=== PATIENT | male | born 1985 | race Caucasian/White ===

== ENCOUNTER 2017-09-08 23:33 | Inpatient (IN) | payer MEDICARE ==
--- NOTE | 2017-09-08 23:54 | ED PDOC ---
Psych Transfer Clearance - Clearance Statement Clearance Statement: Reviewed vital signs, lab results and transfer papers. Patient clinically stable for psychiatric admission. pt was cleared by Dr Hamilton
[2017-09-09] MEDS ORDERED: Alum-Mag Hydrox-Simethicone Susp (30 mL) PO PRN (00:07)
[2017-09-09] MEDS ORDERED: DiphenhydrAMINE 50 mg/ml Inj IM PRN (00:07)
[2017-09-09] MEDS ORDERED: Magnesium Hydroxide Susp 30 ml UD PO PRN (00:07)
--- NOTE | 2017-09-09 00:27 | PCM.BM ---
<Kasie Lazaro - Last Filed: 09/09/17 00:25> Treatment Plan Problems - Problems identified on initial assessmt Hopelessness/Helplessness Date Initiated: 09/09/17 Time Initiated: 00:26 Assessment reference: NA Status: Active Medication Nonadherance Date Initiated: 09/09/17 Time Initiated: 00:26 Assessment reference: NA Status: Active Treatment assets and liabiliti Patient Assests: adapts well, cooperative, insightful, self-reliant, ADL independent, physically healthy, negotiates basic needs, cognitively intact Patient Liabilities: poor support system, substance abuse - Milieu Protocol Maintain good personal hygiene: daily Remind patient to perform daily oral care , every shift Encourage regular showers, every shift Assist patient to perform ADL's Conduct patient checks and document Observation sheet: Q15 minutes Maintain personal safety: every shift Educate patient to report safety concerns to staff, every shift Monitor environment for contraband/sharps Medication safety: Monitor for expected outcome, potential side effects: every shift, Assess barriers to learning: every shift, Assess readiness for medication education: every shift <Rita Hamilton - Last Filed: 09/14/17 09:21> - Diagnosis (1) Schizoaffective disorder Status: Acute Interventions: Medication management, Individual and group therapy, Psychoeducation 09/14/17 09:22 (2) Heroin abuse Status: Acute Interventions: Medication management, Individual and group therapy, Psychoeducation 09/14/17 09:22 (3) Cocaine abuse Status: Acute Interventions: Medication management, Individual and group therapy, Psychoeducation 09/14/17 09:22 <Kei Roche - Last Filed: 09/15/17 08:09> Family Contact Family involvement: Famliy/SO not involved Family contact: Patient declines to allow family contact at present Family contact name: Pt denied. - Goals for Treatment Patient goals for treatment: Pt reported he would like to be referred to residential treatment to help him obtain and maintain sobriety. Discharge/Continuing Care - Education Needs Education Needs: Patient Medication, Patient Diagnosis/Disease Process, Patient Coping Skills, Patient Placement options, Patient Community resources, Patient Aftercare Safety Plan - Discharge Discharge Criteria: Tolerates medication w/o severe side effects, Free of Suicidal thoughts, Normal sleep pattern, Reduction of target symptoms Discharge to:: Substance Abuse Rehab - Treatment Team Participation Patient/Family/SO Statement: 09/14/17 08:07 Pt presented as brighter and reported he was "better" in treatment team. Pt still appearing disheveled. Pt reported he was still having difficulty sleeping at night so his Trazodone will be raised and his Abilify will be switched to Risperdal. Pt denied SI/HI and AVT hallucinations. Discussed with Family/SO: No Was Patient/Family/SO present at Treatment Team Meeting: Yes
[2017-09-09 00:43] VITALS: O2SAT 96
--- NOTE | 2017-09-09 17:37 | PCM.PSYCH ---
Initial Psychiatric Evaluation - Initial Psychiatric Evaluation Chief Complaint (in patient's own words): came to er because i was using crack and i was afraid i was going to harm myself Patient's Reaction to Hospitalization: signed in voluntarily History of Present Illness and Precipitating Events: presented to [facility] er compaining of s/i in context of crack cocaine use. was seen in [facility] approx one month ago for same. reports 10 year plus hx of crack cocaine use. various inpt related to similar previously treated in community for bipolar disorder with tegretol and abilify. denies suicide attempts in past. not currently member of work force or having stable housing. Current Medications: Active Medications Generic Name Dose Route Start Last Admin Trade Name Freq PRN Reason Stop Dose Admin Acetaminophen 650 mg 09/09/17 00:07 Tylenol 325mg Tab PO Q4 PRN Pain, moderate (4-7) Al Hydrox/Mg Hydrox/Simethicone 30 ml 09/09/17 00:07 Maalox Plus 30 Ml PO Q4 PRN Dyspepsia Diphenhydramine HCl 50 mg 09/09/17 00:07 Benadryl IM Q6 PRN Extrapyramidal S/S Unable PO Diphenhydramine HCl 50 mg 09/09/17 00:14 Benadryl PO HS PRN Sleep Lorazepam 1 mg 09/09/17 01:00 09/09/17 16:58 Ativan PO 1 mg Q8 [place] Administration Magnesium Hydroxide 30 ml 09/09/17 00:07 Milk Of Magnesia PO HS PRN Constipation Past Psychiatric History - Past Psychiatric History Prior Professional Help: inpt er opd non follow up opd nond adherence History of ETOH/Drug Use: crack use cocaine inhalation History of Family Illness: substance use? psychiatryic illness ? Pertinent Medical Hx (Current Medical&Sleep Prob, Allergies): Allergies Allergy/AdvReac Type Severity Reaction Status Date / Time haloperidol [From Haldol] Allergy RASH Verified 09/08/17 23:39 ziprasidone [From Geodon] Allergy HEADACHE Verified 09/08/17 23:39 ARIPiprazole [Abilify] 10 mg PO HS #30 tab 08/18/17 Citalopram [celEXA] 20 mg PO DAILY #30 tab 08/18/17 carBAMazepine [Tegretol] 200 mg PO BID #60 tab 08/18/17 traZODone [Desyrel] 50 mg PO HS #30 tab 08/18/17 Review of Systems - Psychiatric Psychiatric: Abnormal Sleep Pattern, Depression, Difficulty Concentrating, Irritability, Suicidal Ideation Mental Status Examination - Personal Presentation Personal Presentation: Looks older than stated age - Affect Affect: Constricted - Motor Activity Motor Activity: Psychomotor Retardation - Reliability in Providing Information Reliability in Providing Information: Fair - Speech Speech: Organized - Mood Mood: Depressed, Anxious - Formal Thought Process Formal Thought Process: No Impairment - Obsessions/Compulsions Obsessions: No Compulsions: No - Cognitive Functions Orientation: Person, Place, Situation, Time Sensorium: Alert Attention/Concentration: Attentive Judgement: Imparied, as evidence by: Other - Risk Risk: Suicidal, Diminished functioning - Strength & Assets Inventory Strength & Assets Inventory: Cooperative (non domicile non member of work force) DSM 5 DX - DSM 5 DSM 5 Diagnosis: bipolar disorder substance use cocaine inhalation - Recommended/Plan of Treatment Treatment Recommendations and Plan of Treatment: inpt adm per attending vital signs and clinical observation per protocol and per clinical status prns per unit protocol hospitalist consult discharge planning in progress
--- NOTE | 2017-09-09 17:37 | CP.PCM.CON ---
History of Present Illness - History of Present Illness History of Present Illness: 32 yo male with no significant PMH admitted to psyche unit because of depression. Review of Systems - Review of Systems All systems: reviewed and no additional remarkable complaints except (aside from those mentioned above, 12 point system review were negative by me) Past Patient History - Tetanus Immunizations Tetanus Immunization: Unknown - Past Social History Smoking Status: Heavy Smoker > 10 Cigarettes Daily Chewing Tobacco Use: No Cigar Use: No Alcohol: > 2 Drinks/Day Drugs: Denies - CARDIAC Hx Cardiac Disorders: No - PULMONARY Hx Respiratory Disorders: Yes Hx Asthma: Yes - NEUROLOGICAL Hx Neurological Disorder: No - HEENT Hx HEENT Problems: No - RENAL Hx Chronic Kidney Disease: No - ENDOCRINE/METABOLIC Hx Endocrine Disorders: No - HEMATOLOGICAL/ONCOLOGICAL Hx Blood Disorders: No - INTEGUMENTARY Hx Dermatological Problems: No - MUSCULOSKELETAL/RHEUMATOLOGICAL Hx Musculoskeletal Disorders: No - GASTROINTESTINAL Hx Gastrointestinal Disorders: No - GENITOURINARY/GYNECOLOGICAL Hx Genitourinary Disorders: No - PSYCHIATRIC Hx Substance Use: Yes - SURGICAL HISTORY Hx Surgeries: Yes Hx Tonsillectomy: Yes - ANESTHESIA Hx Anesthesia: Yes Hx Anesthesia Reactions: No Meds Allergies/Adverse Reactions: Allergies Allergy/AdvReac Type Severity Reaction Status Date / Time haloperidol [From Haldol] Allergy RASH Verified 09/08/17 23:39 ziprasidone [From Geodon] Allergy HEADACHE Verified 09/08/17 23:39 - Medications Medications: Current Medications Acetaminophen (Tylenol 325mg Tab) 650 mg PO Q4 PRN PRN Reason: Pain, moderate (4-7) Al Hydrox/Mg Hydrox/Simethicone (Maalox Plus 30 Ml) 30 ml PO Q4 PRN PRN Reason: Dyspepsia Diphenhydramine HCl (Benadryl) 50 mg IM Q6 PRN PRN Reason: Extrapyramidal S/S Unable PO Diphenhydramine HCl (Benadryl) 50 mg PO HS PRN PRN Reason: Sleep Lorazepam (Ativan) 1 mg PO Q8 [place] Last Admin: 09/09/17 16:58 Dose: 1 mg Magnesium Hydroxide (Milk Of Magnesia) 30 ml PO HS PRN PRN Reason: Constipation Physical Exam - Constitutional Appears: No Acute Distress - Head Exam Head Exam: ATRAUMATIC - Eye Exam Eye Exam: absent: Scleral icterus - ENT Exam ENT Exam: Mucous Membranes Moist - Neck Exam Neck exam: Negative for: Meningismus - Respiratory Exam Respiratory Exam: absent: Rales, Rhonchi, Wheezes, Respiratory Distress - Cardiovascular Exam Cardiovascular Exam: REGULAR RHYTHM, +S1, +S2 - GI/Abdominal Exam GI & Abdominal Exam: Soft. absent: Tenderness - Rectal Exam Rectal Exam: Deferred - Extremities Exam Extremities exam: Negative for: calf tenderness, pedal edema - Back Exam Back exam: NORMAL INSPECTION - Neurological Exam Neurological exam: Alert, Oriented x3 - Psychiatric Exam Psychiatric exam: Normal Affect - Skin Skin Exam: Dry, Intact Results - Vital Signs Recent Vital Signs: Last Vital Signs Temp 97.2 F L 09/09/17 17:00 Pulse 70 09/09/17 17:00 Resp 18 09/09/17 17:00 BP 140/74 09/09/17 17:00 Pulse Ox 96 09/09/17 00:15 Assessment & Plan (1) Depression Status: Acute Comment: psyche is managing
[2017-09-10 07:17] LABS: BASO # 0.1 K/uL (0.0-0.2); BASO % 0.6 % (0.0-2.0); EOS # 0.2 K/uL (0.0-0.7); EOS % 1.9 % (0.0-4.0); HEMOGLOBIN 15.8 g/dL (12.0-18.0); LYMPH % 46.7 % (20.0-40.0); MEAN CELL VOLUME 87.5 fl (80.0-94.0); MEAN CORPUSCULAR HEMOGLOBIN 29.9 pg (27.0-31.0); MEAN CORPUSCULAR HGB CONC 34.2 g/dL (33.0-37.0); MEAN PLATELET VOLUME 7.5 fl (7.2-11.7); MONO # 0.5 K/uL (0.0-0.8); MONO % 5.9 % (0.0-10.0); NEUT # 3.8 K/uL (1.8-7.0); NEUT % 44.9 % (50.0-75.0); NRBC % 0.1 % (0.0-0.0); RBC 5.29 Mil/uL (4.40-5.90); RED CELL DISTRIBUTION WIDTH 14.2 % (11.5-14.5); WHITE BLOOD COUNT 8.5 K/uL (4.8-10.8)
[2017-09-10 07:23] LABS: ALB/GLOB RATIO 1.5 (1.0-2.1); ALBUMIN 4.3 g/dL (3.5-5.0); ALT/SGPT 47 U/L (21-72); AST/SGOT 33 U/L (17-59); BLOOD UREA NITROGEN 11 mg/dl (9-20); CALCIUM 9.5 mg/dL (8.4-10.2); GFR AFRICAN-AMERICAN > 60; GFR NON-AFRICAN AMERICAN > 60
[2017-09-10 08:04] LABS: BARBITURATES, UR NEGATIVE (NEGATIVE); BENZODIAZEPINES, UR NEGATIVE (NEGATIVE); OPIATES, UR NEGATIVE (NEGATIVE); PHENCYCLIDINE, UR NEGATIVE (NEGATIVE)
--- NOTE | 2017-09-10 13:56 | PCM.PYCHPN ---
Psychiatric Progress Note - Psychiatric Progress Note Patient seen today, length of contact: Patient evaluated, case discussed with team, chart reviewed Patient Chief Complaint: "I'm depressed." Problems Identified/Issues Discussed: Patient continues to report feeling depressed w/ passive SI w/o active suicidal ideation/plan/intent. He feels hopeless and distressed about his difficulties w / substance abuse. He denies current AH/VH/paranoia/delusions. He denies adverse effects to medications. Medication Change: No Medical Record Reviewed: Yes Consults ordered or reviewed: Medicine consult Mental Status Examination - Cognitive Function Orientation: Person, Place, Situation, Time Memory: Intact Attention: WNL Concentration: WNL Association: WNL Fund of Knowledge: [facility] Decription of patient's judgement and insights: Poor I/J re: substance abuse - Mood Mood: Depressed, Anxious - Affect Affect: Constricted, Depressed - Speech Speech: Appropriate - Formal Thought Process Formal Thought Process: No Impairment Psychotic Thoughts and Behaviors: Denies AH/VH/paranoia/delusions - Suicidal Ideation Suicidal Ideation: Yes Plan: Passive SI w/o active plan or intent - Homicidal Ideation Homicidal Ideation: No Goal/Treatment Plan - Goal/Treatment Plan Need for Continued Stay: Remain at risks for inpatient hospitalization, Severe depression anxiety, Discharge may exacerbated symptoms Progress Toward Problem(s) and Goals/Treatment Plan: Schizoaffective disorder vs substance induced mood/psychotic disorder; cocaine use disorder; heroin use disorder -Continue Abilify 10 mg PO Daily and Tegretol 200 mg PO BID -Individual and group therapy -Psychoeducation -Medicine consult -Disposition planning Estimated Date of D/C: 09/15/17
--- NOTE | 2017-09-11 08:49 | PCM.PYCHPN ---
Psychiatric Progress Note - Psychiatric Progress Note Patient seen today, length of contact: Patient evaluated, case discussed with team, chart reviewed Patient Chief Complaint: "I'm depressed." Problems Identified/Issues Discussed: Patient continues to report feeling depressed, but denies active suicidal ideation/plan/intent. He is more goal oriented and is interested in substance abuse treatment. He denies current AH/VH/paranoia/delusions. He denies adverse effects to medications. Medication Change: No Medical Record Reviewed: Yes Consults ordered or reviewed: Medicine consult Mental Status Examination - Cognitive Function Orientation: Person, Place, Situation, Time Memory: Intact Attention: WNL Concentration: WNL Association: WN Fund of Knowledge: [facility] Decription of patient's judgement and insights: Poor I/J re: substance abuse - Mood Mood: Depressed - Affect Affect: Constricted, Depressed - Speech Speech: Appropriate - Formal Thought Process Formal Thought Process: No Impairment Psychotic Thoughts and Behaviors: Denies AH/VH/paranoia/delusions - Suicidal Ideation Suicidal Ideation: No - Homicidal Ideation Homicidal Ideation: No Goal/Treatment Plan - Goal/Treatment Plan Need for Continued Stay: Remain at risks for inpatient hospitalization, Severe depression anxiety, Discharge may exacerbated symptoms Progress Toward Problem(s) and Goals/Treatment Plan: Schizoaffective disorder vs substance induced mood/psychotic disorder; cocaine use disorder; heroin use disorder -Continue Abilify 10 mg PO Daily and Tegretol 200 mg PO BID -Individual and group therapy -Psychoeducation -Medicine consult -Disposition planning Estimated Date of D/C: 09/15/17
--- NOTE | 2017-09-12 08:06 | PCM.PYCHPN ---
Psychiatric Progress Note - Psychiatric Progress Note Patient seen today, length of contact: Patient evaluated, case discussed with team, chart reviewed Patient Chief Complaint: "I'm depressed." Problems Identified/Issues Discussed: Patient continues to report feeling depressed w/ poor sleep, but denies active suicidal ideation/plan/intent. He is concerned about relapsing on drugs. He denies current AH/VH/paranoia/delusions. He denies adverse effects to medications. Medication Change: No Medical Record Reviewed: Yes Consults ordered or reviewed: Medicine consult Mental Status Examination - Cognitive Function Orientation: Person, Place, Situation, Time Memory: Intact Attention: WNL Concentration: WNL Association: [facility] Fund of Knowledge: [facility] Decription of patient's judgement and insights: Poor I/J re: substance abuse - Mood Mood: Depressed - Affect Affect: Constricted, Depressed - Speech Speech: Appropriate - Formal Thought Process Formal Thought Process: No Impairment Psychotic Thoughts and Behaviors: Denies AH/VH/paranoia/delusions - Suicidal Ideation Suicidal Ideation: No - Homicidal Ideation Homicidal Ideation: No Goal/Treatment Plan - Goal/Treatment Plan Need for Continued Stay: Remain at risks for inpatient hospitalization, Severe depression anxiety, Discharge may exacerbated symptoms Progress Toward Problem(s) and Goals/Treatment Plan: Schizoaffective disorder vs substance induced mood/psychotic disorder; cocaine use disorder; heroin use disorder -Continue Abilify 10 mg PO Daily and Tegretol 200 mg PO BID -Individual and group therapy -Psychoeducation -Medicine consult -Disposition planning Estimated Date of D/C: 09/15/17
--- NOTE | 2017-09-13 18:49 | PCM.PYCHPN ---
Psychiatric Progress Note - Psychiatric Progress Note Patient seen today, length of contact: Patient evaluated, case discussed with team, chart reviewed Patient Chief Complaint: reports feeling calmer, less anxious denies desire to harmself Problems Identified/Issues Discussed: alteration in mood alteration in self care Medical Problems: per chart Diagnostic Results: per psychiatry per medicine per nursing per social work manager per recreational therapy DSM 5 Symptoms Update: alteration in mood Medication Change: No Medical Record Reviewed: Yes Consults ordered or reviewed: pt being followed by hospitalist Mental Status Examination - Cognitive Function Orientation: Person, Place, Situation, Time Memory: Intact Attention: WNL Concentration: WNL Association: [facility] Fund of Knowledge: [facility] Decription of patient's judgement and insights: impaired - Mood Mood: Depressed - Affect Affect: Constricted, Depressed - Speech Speech: Appropriate - Formal Thought Process Formal Thought Process: No Impairment - Suicidal Ideation Suicidal Ideation: No - Homicidal Ideation Homicidal Ideation: No Goal/Treatment Plan - Goal/Treatment Plan Need for Continued Stay: Remain at risks for inpatient hospitalization, Severe depression anxiety, Discharge may exacerbated symptoms Progress Toward Problem(s) and Goals/Treatment Plan: inpt milieu vital signs and clinical observation per protocol and per clinical status prns per unit protocol adjust meds per status cbc/diff am pt receiving tegretol discharge planning in progress Estimated Date of D/C: 09/15/17 - Smoking Cessation Smoking Cessation Initiated: No Reason for not providing: defers
--- NOTE | 2017-09-14 10:43 | PCM.PYCHPN ---
Psychiatric Progress Note - Psychiatric Progress Note Patient seen today, length of contact: Patient evaluated, case discussed with team, chart reviewed Patient Chief Complaint: "I'm depressed." Problems Identified/Issues Discussed: Patient reports that his mood is improving, but he continues to have difficulty sleeping and believes that Abilify is causing him to feel activated. He requested to stop Abilify and start Risperdal, which he states was helpful in the past. He denies current AH/VH/paranoia/delusions. He denies adverse effects to medications. Medication Change: Yes (Stop Abilify; start Risperdal 1 mg PO HS) Medical Record Reviewed: Yes Consults ordered or reviewed: Medicine consult Mental Status Examination - Cognitive Function Orientation: Person, Place, Situation, Time Memory: Intact Attention: WNL Concentration: WNL Association: WNL Fund of Knowledge: WN Decription of patient's judgement and insights: Improving I/J - Mood Mood: Depressed - Affect Affect: Constricted - Speech Speech: Appropriate - Formal Thought Process Formal Thought Process: No Impairment Psychotic Thoughts and Behaviors: No AH/VH/paranoia/delusions - Suicidal Ideation Suicidal Ideation: No - Homicidal Ideation Homicidal Ideation: No Goal/Treatment Plan - Goal/Treatment Plan Need for Continued Stay: Severe depression anxiety, Discharge may exacerbated symptoms Progress Toward Problem(s) and Goals/Treatment Plan: Schizoaffective disorder vs substance induced mood/psychotic disorder; cocaine use disorder; heroin use disorder -Continue Tegretol 200 mg PO BID -Stop Abilify, Start Risperdal 1 mg PO HS -Individual and group therapy -Psychoeducation -Medicine consult -Disposition planning Estimated Date of D/C: 09/17/17
[2017-09-14 19:44] LABS: BASO # 0.1 K/uL (0.0-0.2); EOS # 0.1 K/uL (0.0-0.7); EOS % 1.6 % (0.0-4.0); LYMPH # 2.6 K/uL (1.0-4.3); LYMPH % 44.9 % (20.0-40.0); MEAN CELL VOLUME 87.4 fl (80.0-94.0); MEAN CORPUSCULAR HEMOGLOBIN 30.2 pg (27.0-31.0); MEAN CORPUSCULAR HGB CONC 34.5 g/dL (33.0-37.0); MEAN PLATELET VOLUME 7.2 fl (7.2-11.7); MONO # 0.4 K/uL (0.0-0.8); MONO % 6.5 % (0.0-10.0); NEUT # 2.7 K/uL (1.8-7.0); NRBC % 0.1 % (0.0-0.0); RBC 5.32 Mil/uL (4.40-5.90); RED CELL DISTRIBUTION WIDTH 14.2 % (11.5-14.5); WHITE BLOOD COUNT 5.8 K/uL (4.8-10.8)
--- NOTE | 2017-09-15 07:57 | PCM.PYCHPN ---
Psychiatric Progress Note - Psychiatric Progress Note Patient seen today, length of contact: Patient evaluated, case discussed with team, chart reviewed Patient Chief Complaint: "I'm getting better." Problems Identified/Issues Discussed: Patient reports that his mood is improving. He is goal oriented towards the future. He denies current AH/VH/paranoia/delusions/SI/HI. He denies adverse effects to medications. Psychoeducation provided on the dangers of substance abuse. Medication Change: No Medical Record Reviewed: Yes Consults ordered or reviewed: Medicine consult Mental Status Examination - Cognitive Function Orientation: Person, Place, Situation, Time Memory: Intact Attention: WNL Concentration: WNL Association: WNL Fund of Knowledge: [facility] Decription of patient's judgement and insights: Improving I/J - Mood Mood: Depressed - Affect Affect: Broad - Speech Speech: Appropriate - Formal Thought Process Formal Thought Process: No Impairment Psychotic Thoughts and Behaviors: No AH/VH/paranoia/delusions - Suicidal Ideation Suicidal Ideation: No - Homicidal Ideation Homicidal Ideation: No Goal/Treatment Plan - Goal/Treatment Plan Progress Toward Problem(s) and Goals/Treatment Plan: Schizoaffective disorder vs substance induced mood/psychotic disorder; cocaine use disorder; heroin use disorder; patient has improved clinically and is psychiatrically stable for referral to [facility]. -Continue Tegretol 200 mg PO BID -Continue Risperdal 1 mg PO HS -Individual and group therapy -Psychoeducation -Medicine consult -Disposition planning Estimated Date of D/C: 09/17/17
[2017-09-15 09:16] VITALS: RESP 18
--- NOTE | 2017-09-16 09:24 | PCM.PYCHPN ---
Psychiatric Progress Note - Psychiatric Progress Note Patient seen today, length of contact: Patient evaluated, case discussed with team, chart reviewed Patient Chief Complaint: "I'm getting better." Problems Identified/Issues Discussed: Patient reports that his mood continues to improve. He is goal oriented towards the future. He denies current AH/VH/paranoia/delusions/SI/HI. He denies adverse effects to medications. Psychoeducation provided on the dangers of substance abuse. Medication Change: No Medical Record Reviewed: Yes Consults ordered or reviewed: Medicine consult Mental Status Examination - Cognitive Function Orientation: Person, Place, Situation, Time Memory: Intact Attention: WNL Concentration: WNL Association: WNL Fund of Knowledge: [facility] Decription of patient's judgement and insights: Improving I/J - Mood Mood: Depressed - Affect Affect: Broad - Speech Speech: Appropriate - Formal Thought Process Formal Thought Process: No Impairment Psychotic Thoughts and Behaviors: No AH/VH/paranoia/delusions - Suicidal Ideation Suicidal Ideation: No - Homicidal Ideation Homicidal Ideation: No Goal/Treatment Plan - Goal/Treatment Plan Need for Continued Stay: Discharge may exacerbated symptoms Progress Toward Problem(s) and Goals/Treatment Plan: Schizoaffective disorder vs substance induced mood/psychotic disorder; cocaine use disorder; heroin use disorder; patient has improved clinically and is psychiatrically stable for referral to [facility]. -Continue Tegretol 200 mg PO BID -Continue Risperdal 1 mg PO HS -Individual and group therapy -Psychoeducation -Medicine consult -Disposition planning Estimated Date of D/C: 09/17/17
--- NOTE | 2017-09-16 14:16 | PCM.BM ---
Treatment Plan Problems - Problems identified on initial assessmt Hopelessness/Helplessness Date Initiated: 09/09/17 Time Initiated: 00:26 Assessment reference: NA Status: Active Medication Nonadherance Date Initiated: 09/09/17 Time Initiated: 00:26 Assessment reference: NA Status: Active Denial Date Initiated: 09/16/17 Time Initiated: 14:16 Assessment reference: NA Status: Active Treatment assets and liabiliti Patient Assests: adapts well, cooperative, insightful, self-reliant, ADL independent, physically healthy, negotiates basic needs, cognitively intact Patient Liabilities: poor support system, substance abuse - Milieu Protocol Maintain good personal hygiene: daily Remind patient to perform daily oral care , every shift Encourage regular showers, every shift Assist patient to perform ADL's Conduct patient checks and document Observation sheet: Q15 minutes Maintain personal safety: every shift Educate patient to report safety concerns to staff, every shift Monitor environment for contraband/sharps Medication safety: Monitor for expected outcome, potential side effects: every shift, Assess barriers to learning: every shift, Assess readiness for medication education: every shift Milieu Narrative: Schizoaffective disorder vs substance induced mood/psychotic disorder; cocaine use disorder; heroin use disorder; patient has improved clinically and is psychiatrically stable for referral to [facility]. -Continue Tegretol 200 mg PO BID -Continue Risperdal 1 mg PO HS -Individual and group therapy -Psychoeducation -Medicine consult -Disposition planning Family Contact Family involvement: Famliy/SO not involved Family contact: Patient declines to allow family contact at present Family contact name: Pt denied. - Goals for Treatment Patient goals for treatment: Pt reported he would like to be referred to residential treatment to help him obtain and maintain sobriety. Discharge/Continuing Care - Education Needs Education Needs: Patient Medication, Patient Diagnosis/Disease Process, Patient Coping Skills, Patient Placement options, Patient Community resources, Patient Aftercare Safety Plan - Discharge Discharge Criteria: Tolerates medication w/o severe side effects, Free of Suicidal thoughts, Normal sleep pattern, Reduction of target symptoms Discharge to:: Substance Abuse Rehab - Treatment Team Participation Patient/Family/SO Statement: Schizoaffective disorder vs substance induced mood/psychotic disorder; cocaine use disorder; heroin use disorder; patient has improved clinically and is psychiatrically stable for referral to [facility]. -Continue Tegretol 200 mg PO BID -Continue Risperdal 1 mg PO HS -Individual and group therapy -Psychoeducation -Medicine consult -Disposition planning Discussed with Family/SO: No Was Patient/Family/SO present at Treatment Team Meeting: Yes
--- NOTE | 2017-09-17 08:45 | PCM.PYCHDC ---
Mental Status Examination - Mental Status Examination Orientation: Person, Place, Situation, Time Memory: Intact Mood: Neutral Affect: Broad Speech: Appropriate Attention: WNL Concentration: WNL Association: WNL Fund of Knowledge: WNL Formal Thought Process: No Impairment Description of patient's judgement and insight: Improved I/J Psychotic Thoughts and Behaviors: No AH/VH/paranoia/delusions Suicidal Ideation: No Current Homicidal Ideation?: No Discharge Summary - Discharge Note Reason for Hospitalization: Patient admitted w/ worsening depression/anxiety and suicidal ideation in the context of substance abuse. Consultations:: List each consultation separately and include: 1. Reason for request. 2. Findings. 3. Follow-up Consultations: Medicine consult Summary of Hospital Course include:: 1. Description of specific treatment plan utilized for patients during their course of treatmen. 2. Summarize the time- course for resolution of acute symptoms and/or regressed behaviors. 3. Describe issues identified and worked on during hospitalization. 4. Describe medication utilized. 5. Describe medical problems identified and treated. 6. Reassessment of suicide risk Summary of Hospital Course: Patient was admitted to the psychiatry unit. Individual and group therapy were provided. Patient was stabilized on Tegretol, Risperdal and Trazodone. He denies acute depression/anxiety/AH/VH/paranoia/delusions. Psychoeducation provided on the dangers of substance abuse. He is not an acute danger to self or others and is psychiatrically stable for discharge at this time. - Diagnosis (1) Substance induced mood disorder Current Visit: Yes Status: Chronic (2) Heroin abuse Current Visit: Yes Status: Chronic (3) Cocaine abuse Current Visit: Yes Status: Chronic - Final Diagnosis (DSM 5) Condition upon Discharge: STABLE DSM 5: Substance Induced Mood Disorder; Opioid and Cocaine Use Disorders Disposition: HOME/ ROUTINE Follow-up Treatment Plan: Substance induced mood/psychotic disorder; cocaine use disorder; heroin use disorder; patient has improved clinically and is psychiatrically stable for discharge. -Continue Tegretol 200 mg PO BID -Continue Risperdal 1 mg PO HS -Continue Trazodone 50 mg PO HS -Individual and group therapy -Psychoeducation -Medicine consult -Discharge Prescriptions/Medication Reconciliation: carBAMazepine [Tegretol] 200 mg PO BID #180 tab risperiDONE [RisperDAL Tab] 1 mg PO HS #90 tab traZODone [Desyrel] 50 mg PO HS #90 tab - Smoking Cessation Smoking Cessation Medication prescribed: No Reason for not providing: Not indicated - Antipsychotic Medications Pt discharged on 2 or more routine antipsychotic medications: No
[2017-09-17 09:06] VITALS: BP 132/81; PULSE 71; TEMP 96.3
== END 2017-09-17 12:56 | disposition home or self-care (01) | DRG 895 ==
LOC: H.ER 23:33 → H.ERHOLD 23:53 → H.PSYCH 09-09 00:05
PROVIDERS: ADMIT Psychiatry & Neurology Psychiatry; ATTEND Psychiatry & Neurology Psychiatry
PROC: HZ52ZZZ Individual Psychotherapy for Substance Abuse Treatment, Cognitive-Behavioral (ICD-10-PCS; principal; 2017-09-08)
PROC: GZHZZZZ Group Psychotherapy (ICD-10-PCS; 2017-09-08)
PROC: GZ58ZZZ Individual Psychotherapy, Cognitive-Behavioral (ICD-10-PCS; 2017-09-08)
DX: F19.94 Other psychoactive substance use, unspecified with psychoactive substance-induced mood disorder (principal); F14.129 Cocaine abuse with intoxication, unspecified; R45.851 Suicidal ideations; F11.10 Opioid abuse, uncomplicated; F25.9 Schizoaffective disorder, unspecified; F41.9 Anxiety disorder, unspecified; J45.909 Unspecified asthma, uncomplicated; F17.210 Nicotine dependence, cigarettes, uncomplicated; Z79.899 Other long term (current) drug therapy

== ENCOUNTER 2017-09-20 15:53 | Emergency (ER) | payer MEDICARE ==
[2017-09-20 16:14] VITALS: RESP 18; O2SAT 100
[2017-09-20] MEDS ORDERED: Sodium Chloride 0.9% 1,000 ML IV STA (18:55)
[2017-09-20 19:54] LABS: BASO # 0.1 K/uL (0.0-0.2); BASO % 1.1 % (0.0-2.0); EOS # 0.1 K/uL (0.0-0.7); EOS % 1.7 % (0.0-4.0); HEMOGLOBIN 14.7 g/dL (12.0-18.0); LYMPH # 3.3 K/uL (1.0-4.3); LYMPH % 39.4 % (20.0-40.0); MEAN CELL VOLUME 87.6 fl (80.0-94.0); MEAN CORPUSCULAR HEMOGLOBIN 30.3 pg (27.0-31.0); MEAN CORPUSCULAR HGB CONC 34.6 g/dL (33.0-37.0); MEAN PLATELET VOLUME 7.3 fl (7.2-11.7); MONO # 0.7 K/uL (0.0-0.8); MONO % 7.8 % (0.0-10.0); NEUT # 4.2 K/uL (1.8-7.0); NRBC % 0.1 % (0.0-0.0); RBC 4.84 Mil/uL (4.40-5.90); RED CELL DISTRIBUTION WIDTH 14.5 % (11.5-14.5); WHITE BLOOD COUNT 8.5 K/uL (4.8-10.8)
[2017-09-20] MEDS ORDERED: Iohexol 240 (50 ml) PO STA (20:02)
--- NOTE | 2017-09-20 20:07 | ED PDOC ---
HPI: Abdomen Time Seen by Provider: 09/20/17 18:03 Chief Complaint (Nursing): Abdominal Pain Chief Complaint (Provider): Hernia - Pain worse today History Per: Patient History/Exam Limitations: no limitations Current Symptoms Are (Timing): Still Present Additional Complaint(s): 32 yo male with history of umbilical hernia presents with worsening pain for a few hours. PT states it was acutely worse when he bent over to lift something. Pt states it was not heavy. Pt states he has not had pain from the hernia in the past. No fever/chills. Normal BM. Past Medical History Reviewed: Historical Data, Nursing Documentation, Vital Signs Vital Signs: Last Vital Signs Temp 98.1 F 09/20/17 16:13 Pulse 91 H 09/20/17 16:13 Resp 18 09/20/17 16:13 BP 119/66 09/20/17 16:13 Pulse Ox 100 09/20/17 16:13 - Medical History PMH: Anxiety, Asthma, Bipolar Disorder, Depression, HTN Denies: Chronic Kidney Disease - Surgical History Surgical History: Tonsillectomy - Family History Family History: States: Unknown Family Hx - Living Arrangements Living Arrangements: With Family - Social History Current smoker - smoking cessation education provided: No - Immunization History Hx Tetanus Toxoid Vaccination: No Hx Influenza Vaccination: No - Home Medications Home Medications: Ambulatory Orders Medication Instructions Recorded carBAMazepine [Tegretol] 200 mg PO BID #180 tab 09/16/17 risperiDONE [RisperDAL Tab] 1 mg PO HS #90 tab 09/16/17 traZODone [Desyrel] 50 mg PO HS #90 tab 09/16/17 - Allergies Allergies/Adverse Reactions: Allergies Allergy/AdvReac Type Severity Reaction Status Date / Time haloperidol [From Haldol] Allergy RASH Verified 09/20/17 16:13 ziprasidone [From Geodon] Allergy HEADACHE Verified 09/20/17 16:13 Review of Systems ROS Statement: Except As Marked, All Systems Reviewed And Found Negative Constitutional: Negative for: Fever, Chills Gastrointestinal: Positive for: Other Physical Exam - Reviewed Nursing Documentation Reviewed: Yes Vital Signs Reviewed: Yes - Physical Exam Appears: Positive for: Well, Non-toxic, No Acute Distress Head Exam: Positive for: ATRAUMATIC, NORMAL INSPECTION, NORMOCEPHALIC Skin: Positive for: Normal Color, Warm, DRY Eye Exam: Positive for: Normal appearance ENT: Positive for: Normal ENT Inspection Neck: Positive for: Normal, Painless ROM Cardiovascular/Chest: Positive for: Regular Rate, Rhythm Respiratory: Positive for: Normal Breath Sounds. Negative for: Accessory Muscle Use, Respiratory Distress Gastrointestinal/Abdominal: Positive for: Normal Exam, Soft, Tenderness, Hernia (Plapable, unable to reduce ) Back: Positive for: Normal Inspection Extremity: Positive for: Normal ROM Neurologic/Psych: Positive for: Alert, Oriented - ECG O2 Sat by Pulse Oximetry: 100 Medical Decision Making Medical Decision Making: Endorsed to [facility]OR[facility] Adrian pending CT. Disposition - Clinical Impression Clinical Impression: Umbilical hernia - Patient ED Disposition Is Patient to be Admitted: Transfer of Care - Disposition Disposition: Transfer of Care Disposition Time: 20:08 Condition: STABLE Instructions: Abdominal Hernia (DC)
[2017-09-20 20:08] LABS: PROTHROMBIN TIME 10.1 Seconds (9.8-13.1)
[2017-09-20 20:09] LABS: INR 0.9 (0.9-1.2); PARTIAL THROMBOPLASTIN TIME 29.4 Seconds (25.6-37.1)
[2017-09-20 20:19] LABS: ALB/GLOB RATIO 1.4 (1.0-2.1); ALBUMIN 4.2 g/dL (3.5-5.0); ALT/SGPT 92 U/L (21-72); AST/SGOT 65 U/L (17-59); BLOOD UREA NITROGEN 19 mg/dl (9-20); CALCIUM 9.4 mg/dL (8.4-10.2); GFR AFRICAN-AMERICAN > 60; GFR NON-AFRICAN AMERICAN > 60
[2017-09-20] MEDS ORDERED: Iohexol 240 (50 ml) ONE (20:33)
[2017-09-20] MEDS ORDERED: Iohexol 300 50 ML ONE (22:24)
--- NOTE | 2017-09-21 | ED PDOC ---
- Laboratory Results Result Diagrams: 09/20/17 19:41 09/20/17 19:41 - ECG O2 Sat by Pulse Oximetry: 100 - Progress ED Course And Treament: Case endorsed to telegraphic typewriter mechanic from [facility] pending CT EXAM: CT Abdomen and Pelvis With Intravenous Contrast CLINICAL HISTORY: 32 years old, male; Signs and symptoms; Other: Hernia TECHNIQUE: Axial computed tomography images of the abdomen and pelvis with intravenous contrast. All CT scans at this facility use at least one of these dose optimization techniques: automated exposure control; mA and/or kV adjustment per patient size (includes targeted exams where dose is matched to clinical indication); or iterative reconstruction. CONTRAST: 95 mL of omni-300 administered intravenously. COMPARISON: No relevant prior studies available. FINDINGS: Lung bases: There is minimal bibasilar atelectasis. ABDOMEN: Liver: Possible fatty infiltration. Mild hepatomegaly. Gallbladder and bile ducts: The gallbladder is normal. No calcified stones. No ductal dilation. Pancreas: The pancreas is normal. Spleen: Unremarkable. Adrenals: The adrenal glands are normal. Kidneys and ureters: The kidneys are normal. Stomach and bowel: Unremarkable. No obstruction. PELVIS: Appendix: A normal appendix is identified. Bladder: The bladder is normal. Reproductive: Unremarkable as visualized. ABDOMEN and PELVIS: Intraperitoneal space: Unremarkable. No free air. No significant fluid collection. Bones/joints: No acute fracture. No dislocation. Soft tissues: There is a fat-containing umbilical hernia. There is minimal increased attenuation of the fat within the hernia. Vasculature: Unremarkable. No abdominal aortic aneurysm. Lymph nodes: Unremarkable. No enlarged lymph nodes. IMPRESSION: There is a fat-containing umbilical hernia. There is minimal increased attenuation of the fat within the hernia. Consider the possibility of early incarceration. Additional findings as described above. Ice applied to hernia; attempted to reduce hernia. On re-eval, patient denies pain to site. Size of hernia appears improved Patient educated on findings, advised follow up surgery Rx ibuprofen given Return precautions given Disposition - Clinical Impression Clinical Impression: Umbilical hernia - POA Present On Arrival: None - Disposition Referrals: Nawaf Brewer MD [Staff Provider] - [facility] [Outside] Disposition: Routine/Home Disposition Time: 00:46 Condition: STABLE Prescriptions: Ibuprofen [Motrin Tab] 1 tab PO Q6 PRN #20 tab PRN Reason: Pain, Moderate (4-7) Instructions: Umbilical Hernia, Adult
[2017-09-21 01:23] VITALS: BP 127/70; PULSE 86; TEMP 98.6
--- NOTE | 2017-09-21 07:50 | CT ---
Date of service: 09/20/2017 PROCEDURE: CT Abdomen and Pelvis with contrast HISTORY: hernia COMPARISON: None. TECHNIQUE: Contrast dose: 95 cc Omnipaque 300. Radiation dose: Total exam DLP = 606.75 mGy-cm. This CT exam was performed using one or more of the following dose reduction techniques: Automated exposure control, adjustment of the mA and/or kV according to patient size, and/or use of iterative reconstruction technique. FINDINGS: LOWER THORAX: Unremarkable. LIVER: Unremarkable. No gross lesion or ductal dilatation. GALLBLADDER AND BILE DUCTS: Unremarkable. PANCREAS: Unremarkable. No gross lesion or ductal dilatation. SPLEEN: Unremarkable. ADRENALS: Unremarkable. No mass. KIDNEYS AND URETERS: Unremarkable. No hydronephrosis. No solid mass. VASCULATURE: Unremarkable. No aortic aneurysm. BOWEL: Constipation without fecal impaction or obstruction. APPENDIX: Normal appendix. PERITONEUM: Unremarkable. No free fluid. No free air. LYMPH NODES: Unremarkable. No enlarged lymph nodes. BLADDER: Unremarkable. REPRODUCTIVE: Unremarkable. BONES: No acute fracture. OTHER FINDINGS: Fat containing periumbilical hernia. The opening in the anterior abdominal wall/ rectus musculature 2.5 cm. IMPRESSION: Fat containing anterior abdominal wall hernia. No evidence of associated small-bowel obstruction or other pathologic process. Additional benign and/or incidental findings described above. Concordant results (preliminary interpretation) provided by [employer]. Procedure Completed: 22:38 Preliminary ([facility]) Report: Dictated and Authenticated: 23:47 Final Interpretation: 07:48 September 21, 2017.
== END 2017-09-21 00:45 | disposition home or self-care (01) ==
LOC: H.ER 15:53
DX: K42.9 Umbilical hernia without obstruction or gangrene (principal); F31.9 Bipolar disorder, unspecified; F41.9 Anxiety disorder, unspecified; I10 Essential (primary) hypertension; J45.909 Unspecified asthma, uncomplicated
CPT/HCPCS: 74177; 80053; 85025; 85610; 85730; 86850; 86900; 96374; 96376; 99283; J2270; J7030; Q9966; Q9967